=== PATIENT | male | born 1965 | race Caucasian/White ===

== ENCOUNTER 2021-12-23 19:37 | Emergency (ER) | payer BC, SELFPAY ==
[2021-12-23 19:47] VITALS: BP 136/72; PULSE 51; RESP 16; TEMP 36.8; O2SAT 99
--- NOTE | 2021-12-23 19:49 | ED.SKABFB ---
HPI - Skin/Abscess/Foreign Bdy General Chief complaint: Extremity Injury, Lower Stated complaint: left leg pain Time Seen by Provider: 12/23/21 19:49 Source: patient and RN notes reviewed Mode of arrival: ambulatory Limitations: no limitations History of Present Illness HPI narrative: 56-year-old male with a history of diabetes bumped his leg approximately 1 week ago on a metal yumiko/rebar now it is red, swollen. Patient reports that night it happened he had a goose egg to the area mid left anterior lower leg. Patient states he applied ice and it got better. Approximately 3 days ago noticed the redness and swelling. Patient reports the swelling is worse at night after being on his feet all day. Red warm area approximately 3 cm in diameter noted to mid rick. No fluctuance noted. No drainage noted. Healed abrasion is noted. Sensation intact distal to injury. Full range of motion of the knee and ankle. Positive pedal pulse. Capillary refill under 2 seconds. Negative Homans' sign Patient states approximately 1 week ago bumped his leg on some rebar and had an abrasion, in the area Tetanus up to date: no Related Data Home Medications Medication Instructions Recorded Confirmed empagliflozin 25 mg-linagliptin 5 1 tablet DIRECTED 12/23/21 12/23/21 mg tablet (Glyxambi) hydrochlorothiazide 12.5 mg capsule 12.5 mg DIRECTED 12/23/21 12/23/21 losartan 100 mg tablet 100 mg DIRECTED 12/23/21 12/23/21 metoprolol succinate 50 mg 50 mg PO DIRECTED 12/23/21 12/23/21 tablet,extended release 24 hr verapamil 120 mg tablet,extended 120 mg PO DIRECTED 12/23/21 12/23/21 release Allergies Allergy/AdvReac Type Severity Reaction Status Date / Time No Known Allergies Allergy Unverified 12/20/16 01:13 Review of Systems Review of Systems: All systems reviewed & are unremarkable except as noted in HPI and below Constitutional: Constitutional: Reports no additional constitutional complaints, Denies chills and Denies fever(s) Eyes: Eyes: Reports no additional eye complaints ENT: Reports system reviewed and no additional complaints, except as documented Cardiovascular: Cardiovascular: Reports no additional cardiovascular complaints Respiratory: Respiratory: Reports no additional respiratory complaints Gastrointestinal: Gastrointestinal: Reports no additional gastrointestinal complaints Musculoskeletal: Musculoskeletal: Reports no additional musculoskeletal complaints Integumentary/Breasts: Skin/Breast: Reports as per HPI and Reports erythema Neurologic: Reports system reviewed and no additional complaints, except as documented Psychiatric: Psychiatric: Reports no additional psychiatric complaints Allergic/Immunologic: Allergic/Immunologic: Reports no additional allergic/immunologic complaints [facility] Past Medical History Medical History (Updated 12/25/21 @ 17:35 by Ginger Hough APRN) Diabetes Social History Social History (Updated 12/25/21 @ 17:33 by Ginger Hough APRN) Gender identity (if verbalized by the patient): Male Comments At the time of my signature, I reviewed and agree with the nursing past medical, surgical, social, and family history. There is no relevant family history pertinent to the patient complaint. Exam Const: General: healthy appearing, no acute distress and alert Nutritional Appearance: well nourished Orientation/consciousness: patient oriented x3 Limitations: no limitations HENMT: Head: normal to inspection Ears: external ears normal Eyes: General: appearance normal, both eyes and all related structures Pupils: Equal, round and reactive pupils present Neck: Neck: normal visual inspection, no lymphadenopathy and no meningeal signs Chest: Chest palpation & inspection: normal inspection of the chest Resp: Effort & Inspection: normal respiratory effort and no use of accessory muscles Auscultation: clear to auscultation bilaterally, no crackles, no rales, no rhonchi a
[2021-12-23] MEDS: TETANUS,DIPHTHERIA,AC PERTUSSIS ADULT (0.5 ML) BOOSTRIX IM (20:04)
== END 2021-12-23 20:27 | disposition home or self-care (01) ==
PROVIDERS: Emergency Provider Nurse Practitioner; PCP Family Medicine
DX: L03.116 Cellulitis of left lower limb (principal); E11.9 Type 2 diabetes mellitus without complications; Z23 Encounter for immunization
CPT/HCPCS: 90471; 90715; 99213; G0463